=== PATIENT | female | born 1950 | race Caucasian/White ===

== ENCOUNTER 2021-03-06 13:25 | Emergency (ER) | payer MEDICARE ==
[2021-03-06] MEDS ORDERED: Adacel Vial IM ONE ×2 (13:51→13:54)
[2021-03-06 14:07] LABS: Absolute Neutrophil Ct (ANC) 4.86 (1.4-6.9); BASOPHIL % 0.2 % (0.0-0.4); Basophil (Absolute #) 0.01 (0-0.4); Eosinophil % 1.1 % (0.00-5.0); Eosinophil (Absolute #) 0.07 (0-0.5); Hematocrit 36.1 % (35-47); Hemoglobin 11.7 gm/dl (12.0-16.0); Lymphocyte (Absolute #) 0.72 (1.0-4.6); Lymphocytes % 11.6 % (24.0-44.0); Mean Cell Volume 91.4 fl (78-100); Mean Corpuscular Hemoglobin 29.6 pg (26-32); Mean Corpuscular Hgb Concent. 32.4 g/dl (32-36); Monocyte (Absolute #) 0.55 (0.0-1.3); Monocytes % 8.9 % (0.0-12.0); Neutrophil % 78.2 % (36.0-66.0); Platelet Count 126 K/mm3 (150-450); Red Blood Count 3.95 M/mm3 (4.1-5.4); Red Cell Distribution Width 16.5 % (11.5-14.0); White Blood Count 6.2 K/mm3 (4.0-10.5)
[2021-03-06 14:14] LABS: INR 1.08 (0.8-3.0); PROTIME 12.7 SECONDS (9.4-12.5)
--- NOTE | 2021-03-06 14:22 | ERPHSYRPT ---
- History of Present Illness Time Seen by Provider: 03/06/21 13:28 Source: patient, family Exam Limitations: clinical condition Patient Subjective Stated Complaint: Pt fell over a curb yesterday and hit her left side of ther face causing bruising on the entire left side of face, pt responded properly last night but today the pt has word salad Triage Nursing Assessment: Pt brought to the ER by her friend, hypertensive, denies pain, left eye swollen shut and bruised, bruising goes all the way down to the left side of neck, denies LOC, skin n/w/d, talking to son without errors but when discusses accident she gets her words confused, able to touch her nose and the tip of doctors finger, raises legs and arms with no problems Physician History: 70 years old female with history of hypertension, GERD, hyperlipidemia presented in the ER after she tripped while walking in a parking lot and hit her head/left eyes/face against the concrete yesterday. She did not lose consciousness. She was doing fine until her friend/son called her and noticed that she is having some confusion/word salad. Patient can hold a normal conversation but is unable to describe her fall yesterday. Complaining of some dull aching left-sided facial pain without any visual disturbance, numbness tingling or focal weakness. Denies any chest pain palpitations or shortness of breath. No abdominal pain nausea or vomiting. Occurred: yesterday Severity: moderate Head Injury Location: frontal Method of Injury: fell Loss of Consciousness: no loss of consciousness Associated Symptoms: denies symptoms Allergies/Adverse Reactions: No Known Drug Allergies Allergy (Verified 03/06/21 13:53) Home Medications: Losartan Potassium 100 mg PO DAILY 03/06/21 [History] Methotrexate Sodium 2.5 mg [Trexall 2.5 mg] 2.5 mg PO UD 03/06/21 [History] PANTOPRAZOLE 40 mg Tablet [Protonix 40MG Tablet] 40 mg PO QAM 03/06/21 [History] Pravastatin Sodium 20 mg PO DAILY 03/06/21 [History] Sertraline HCl 100 mg PO DAILY 03/06/21 [History] Temazepam [Restoril] 30 mg PO HS 03/06/21 [History] Travel Risk - International Travel Have you traveled outside of the country in past 3 weeks: No - Coronavirus Screening Are you exhibiting any of the following symptoms?: No Close contact with a COVID-19 positive Pt in past 14-21 Days: No - Vaccine Status Have you recieved a Covid-19 vaccination: Yes 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: [employer] - Review of Systems Constitutional: No Symptoms Eyes: Eye Pain, Eye Redness Ears, Nose, & Throat: Mouth Pain, Mouth Swelling Respiratory: No Symptoms Cardiac: No Symptoms Abdominal/Gastrointestinal: No Symptoms Genitourinary Symptoms: No Symptoms Musculoskeletal: No Symptoms Neurological: No Symptoms Psychological: No Symptoms Endocrine: No Symptoms Hematologic/Lymphatic: No Symptoms Immunological/Allergic: No Symptoms - Past Medical History Pertinent Past Medical History: Yes Neurological History: No Pertinent History Cardiac History: High Cholesterol, Hypertension Respiratory History: No Pertinent History Endocrine Medical History: No Pertinent History Musculoskeletal History: Arthritis, Fractures Other Medical History: WAS TAKING MELOXICAM BEFORE SURGERY. - Past Surgical History Past Surgical History: Yes - Social History Smoking Status: Never smoker Exposure to second hand smoke: No Drug Use: none Patient Lives Alone: Yes - Nursing Vital Signs Nursing Vital Signs: Initial Vital Signs Temperature 97.4 F 03/06/21 13:35 Pulse Rate 84 03/06/21 13:35 Blood Pressure 162/88 03/06/21 13:35 O2 Sat by Pulse Oximetry 98 03/06/21 13:35 Pain Scale Pain Intensity 0 - Bam Coma Score Best Eye Response (Bam): (4) open spontaneously Best Verbal Response (Bam): (5) oriented Best Motor Response ([place]): (6) obeys commands [place] Total: 15 - Physical Exam General Appearance: no apparent distress, alert Head Injury: contusions, raccoon eyes, swelling Eye Exam: right eye: normal inspection, PERRL, EOMI, left eye: conjunctival hemorrhage, eyelid injury, periorbital ecchymosis ENT Exam: airway nml, No evidence of ENT injury, No dental injury Neck Exam: supple, trachea midline, full range of motion, normal alignment, normal inspection Cardiovascular/Respiratory Exam: chest non-tender, normal breath sounds, regular rate/rhythm, heart sounds normal Gastrointestinal/Abdominal Exam: soft, non tender, no distention Back Exam: normal inspection, normal range of motion Extremity Exam: non-tender, normal range of motion, normal inspection Mental Status Exam: alert, oriented x 3, 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, normal speech, PERRL Coordination/Gait Exam: normal finger to nose SpO2: 98 - Course EKG Interpreted by Me: RATE (85), Sinus Rhythm, NORMAL AXIS, prolonged QT interval, Non-specific ST Changes Ordered Tests: Active Orders 24 hr Category Date Time Status Salvage Clerk STAT Care 03/06/21 13:51 Completed EKG-ER Only STAT Care 03/06/21 13:50 Completed IV Insertion STAT Care 03/06/21 13:50 Completed CERVICAL SPINE WO CONTRAST [CT] Stat Exams 03/06/21 13:49 Completed CHEST 1 VIEW (PORTABLE) Stat Exams 03/06/21 13:51 Completed FACIAL BONES WO CONTRAST [CT] Stat Exams 03/06/21 13:50 Completed HEAD WITHOUT CONTRAST [CT] Stat Exams 03/06/21 13:50 Completed CBC W DIFF Stat Lab 03/06/21 14:00 Completed CK-Creatinine Phosphokinase Stat Lab 03/06/21 14:00 Completed CMP Stat Lab 03/06/21 14:00 Completed NT PRO BNP Stat Lab 03/06/21 14:00 Completed PROTIME WITH INR Stat Lab 03/06/21 14:00 Completed PTT Stat Lab 03/06/21 14:00 Completed TROPONIN Q3H Lab 03/06/21 14:00 Completed UA W/RFX UR CULTURE Stat Lab 03/06/21 15:52 Completed Medication Summary Discontinued Medications Generic Name Dose Route Start Last Admin Trade Name Freq PRN Reason Stop Dose Admin Diphtheria/Tetanus/Acell Pertussis 0.5 ml 03/06/21 13:51 03/06/21 13:56 Adacel Vial IM 03/06/21 13:52 0.5 ml .ONCE ONE Administration Diphtheria/Tetanus/Acell Pertussis Confirm 03/06/21 13:54 Adacel Vial Administered 03/06/21 13:55 Dose 0.5 ml IM .STK-MED ONE Lidocaine 1 patch 03/06/21 15:05 03/06/21 15:08 Lidoderm Patch 5% TOP 03/06/21 15:06 Not Given ONCE STA Lab/Rad Data: Laboratory Result Diagrams 03/06/21 14:00 03/06/21 14:00 Laboratory Results 03/06/21 03/06/21 03/06/21 Range/Units 15:52 14:00 14:00 WBC (4.0-10.5) K/mm3 RBC (4.1-5.4) M/mm3 Hgb (12.0-16.0) gm/dl Hct (35-47) % MCV (78-100) fl MCH (26-32) pg MCHC (32-36) g/dl RDW (11.5-14.0) % Plt Count (150-450) K/mm3 MPV (7.5-11.0) fl Gran % (36.0-66.0) % Eos # (Auto) (0-0.5) Absolute Lymphs (auto) (1.0-4.6) Absolute Monos (auto) (0.0-1.3) Lymphocytes % (24.0-44.0) % Monocytes % (0.0-12.0) % Eosinophils % (0.00-5.0) % Basophils % (0.0-0.4) % Absolute Granulocytes (1.4-6.9) Basophils # (0-0.4) PT 12.7 H (9.4-12.5) SECONDS INR 1.08 (0.8-3.0) APTT 30.0 (25.1-36.5) SECONDS Sodium (137-145) mmol/L Potassium (3.5-5.1) mmol/L Chloride (98-107) mmol/L Carbon Dioxide (22-30) mmol/L Anion Gap (5-15) MEQ/L BUN (7-17) mg/dL Creatinine (0.52-1.04) mg/dL Estimated GFR ML/MIN Glucose (74-106) mg/dL Calcium (8.4-10.2) mg/dL Total Bilirubin (0.2-1.3) mg/dL AST (14-36) U/L ALT (0-35) U/L Alkaline Phosphatase (38-126) U/L Creatine Kinase (30-135) U/L Troponin I < 0.012 (0.000-0.034) ng/mL NT-Pro-B Natriuret Pep (0-900) pg/mL Serum Total Protein (6.3-8.2) g/dL Albumin (3.5-5.0) g/dL Urine Color STRAW (YELLOW) Urine Appearance CLEAR (CLEAR) Urine pH 7.0 (5-6) Ur Specific Melba 1.006 (1.005-1.025) Urine Protein NEGATIVE (Negative) Urine Ketones NEGATIVE (NEGATIVE) Urine Blood NEGATIVE (0-5) Manuel/ul Urine Nitrite NEGATIVE (NEGATIVE) Urine Bilirubin NEGATIVE (NEGATIVE) Urine Urobilinogen NEGATIVE (0-1) mg/dL Ur Leukocyte Esterase NEGATIVE (NEGATIVE) Urine WBC (Auto) NONE (0-5) /HPF Urine Culture Reflexed NO (NO) Urine Glucose NEGATIVE (NEGATIVE) mg/dL 03/06/21 03/06/21 Range/Units 14:00 14:00 WBC 6.2 (4.0-10.5) K/mm3 RBC 3.95 L (4.1-5.4) M/mm3 Hgb 11.7 L (12.0-16.0) gm/dl Hct 36.1 (35-47) % MCV 91.4 (78-100) fl MCH 29.6 (26-32) pg MCHC 32.4 (32-36) g/dl RDW 16.5 H (11.5-14.0) % Plt Count 126 L (150-450) K/mm3 MPV 10.0 (7.5-11.0) fl Gran % 78.2 H (36.0-66.0) % Eos # (Auto) 0.07 (0-0.5) Absolute Lymphs (auto) 0.72 L (1.0-4.6) Absolute Monos (auto) 0.55 (0.0-1.3) Lymphocytes % 11.6 L (24.0-44.0) % Monocytes % 8.9 (0.0-12.0) % Eosinophils % 1.1 (0.00-5.0) % Basophils % 0.2 (0.0-0.4) % Absolute Granulocytes 4.86 (1.4-6.9) Basophils # 0.01 (0-0.4) PT (9.4-12.5) SECONDS INR (0.8-3.0) APTT (25.1-36.5) SECONDS Sodium 138 (137-145) mmol/L Potassium 4.4 (3.5-5.1) mmol/L Chloride 102 (98-107) mmol/L Carbon Dioxide 25 (22-30) mmol/L Anion Gap 14.7 (5-15) MEQ/L BUN 19 H (7-17) mg/dL Creatinine 1.37 H (0.52-1.04) mg/dL Estimated GFR 40.3 ML/MIN Glucose 143 H (74-106) mg/dL Calcium 9.4 (8.4-10.2) mg/dL Total Bilirubin 1.00 (0.2-1.3) mg/dL AST 30 (14-36) U/L ALT 20 (0-35) U/L Alkaline Phosphatase 101 (38-126) U/L Creatine Kinase 62 (30-135) U/L Troponin I (0.000-0.034) ng/mL NT-Pro-B Natriuret Pep 176 (0-900) pg/mL Serum Total Protein 8.1 (6.3-8.2) g/dL Albumin 4.5 (3.5-5.0) g/dL Urine Color (YELLOW) Urine Appearance (CLEAR) Urine pH (5-6) Ur Specific Melba (1.005-1.025) Urine Protein (Negative) Urine Ketones (NEGATIVE) Urine Blood (0-5) Manuel/ul Urine Nitrite (NEGATIVE) Urine Bilirubin (NEGATIVE) Urine Urobilinogen (0-1) mg/dL Ur Leukocyte Esterase (NEGATIVE) Urine WBC (Auto) (0-5) /HPF Urine Culture Reflexed (NO) Urine Glucose (NEGATIVE) mg/dL - Progress Progress: improved, re-examined Progress Note: 03/06/21 16:10 70 years old is evaluated for facial/head trauma yesterday with some word finding issues this morning. She has a nonfocal neuro exam otherwise. Intact range of motion of eyes including the left. I have obtained CT head, facial bones and cervical spine which are negative for any acute trauma related finding except for left orbital floor nondisplaced fracture without any entrapment. Baseline work-up is grossly unremarkable. On reevaluation patient is back to normal and is able to completely recall what happened yesterday. She is not confused or altered at all. She is ambulating in the ER without any limitation. Nonfocal neuro exam. I have discussed with Dr. Paredes trauma surgery [facility], reviewed history and CT findings, do not think patient needs imaging at trauma surgery but outpatient ENT. I have called Dr. Barrios's office which is closed now, recommended calling for outpatient appointment early Tuesday morning. I have offered her observation admission as she stays alone at home but she does not want to stay in the hospital absolutely. I have discussed with patient and family and her son would be staying with her for next 2 days and discussed with her about signs symptoms of worsening needing return to ER which do seem understanding. I believe patient has some element of concussion with confusion. At this point patient is being discharged in stable condition. Discussed with Dr.: Other (Dr. Paredes trauma surgeon) Counseled pt/family regarding: lab results, diagnosis, need for follow-up, rad results - Departure Departure Disposition: Home Clinical Impression: Concussion Qualifiers: Encounter type: initial encounter Loss of consciousness presence/duration: without LOC Qualified Code(s): S06.0X0A - Concussion without loss of consciousness, initial encounter Orbital floor fracture Qualifiers: Encounter type: initial encounter Fracture type: closed Laterality: left Qualified Code(s): S02.32XA - Fracture of orbital floor, left side, initial encounter for closed fracture Facial contusion Qualifiers: Encounter type: initial encounter Qualified Code(s): S00.83XA - Contusion of other part of head, initial encounter Condition: Stable Critical Care Time: No Referrals: NEGAR GONZALEZ NP [Primary Care Provider] - (Tuesday morning at 11 AM) KAYLEE BLACKMON [NON-STAFF PHY W/O PRIVILEGES] - (Call Tuesday for reevaluation) Instructions: Concussion, Adult (DC), Closed Head Injury (DC), Facial Fracture (DC) Additional Instructions: Take Tylenol as needed. Apply intermittent ice. A with a responsible person for next 48 hours with frequent neuro checks. Follow head injury/concussion instructions and return to ER for confusion, altered mental status, numbness tingling focal weakness, difficulty speech etc. Use cane/walker for ambulation to avoid another fall. Do not take ibuprofen Aleve or any other NSAIDs.
--- NOTE | 2021-03-06 14:26 | XRAY ---
Indication: Status post fall. Comparison: None Portable apical lordotic chest inflated and clear with a few incidental tiny calcified granulomas. Heart is not enlarged. Bony thorax intact with osteopenia, degenerative changes, and old left humerus fracture. Impression: Nonacute chest with chronic features.
[2021-03-06 14:27] LABS: ALBUMIN 4.5 g/dL (3.5-5.0); ANION GAP 14.7 MEQ/L (5-15); Calcium 9.4 mg/dL (8.4-10.2); Creatinine 1 1.37 mg/dL (0.52-1.04); EST GLOMERULAR FILTRATION RATE 40.3 ML/MIN; Potassium 4.4 mmol/L (3.5-5.1); Total Protein 8.1 g/dL (6.3-8.2)
--- NOTE | 2021-03-06 14:28 | XRAY ---
Indication: Left-sided bruising and swelling following fall. Multiple contiguous axial images obtained through the head without contrast. Comparison: None Age-appropriate global atrophy. No acute intracranial hemorrhage, abnormal extra-axial fluid collection, or mass effect. Fourth ventricle is midline without hydrocephalus. Verdugo-white matter differentiation preserved. Bony calvarium intact. Left maxillary sinus demonstrates moderate fluid leveling. Remaining paranasal sinuses and mastoid air cells are clear. Impression: 1. Left maxillary sinus disease. 2. Remaining CT head without contrast exam is negative.
--- NOTE | 2021-03-06 14:36 | XRAY ---
Indication: Left-sided bruising and swelling following fall. Multiple contiguous axial images obtained through the facial bones. Sagittal and coronal reformatted images obtained. Comparison: None Patient is edentulous. Mild left periorbital soft tissue swelling. Floor of the left orbit demonstrates nondisplaced/nondepressed fracture. Left maxillary sinus fluid leveling presumed blood. No entrapment of the extraocular muscles. No other acute fracture, suspicious bony lesions, or radiopaque foreign body. Remaining paranasal sinuses and nasal passages are clear. Visualized noncontrasted soft tissues are unremarkable. CT head and CT cervical spine reported separately. Impression: Nondisplaced nondepressed fracture floor of left orbit with left maxillary sinus fluid leveling/blood.
[2021-03-06] MEDS ORDERED: Lidoderm Patch 5% TOP STA (15:05)
--- NOTE | 2021-03-06 16:00 | XRAY ---
Indication: Left-sided bruising and swelling following fall. Multiple contiguous axial images obtained through the cervical spine. Sagittal and coronal reformatted images obtained. Comparison: None Axial images images negative for acute fracture, suspicious bony lesions, or spinal canal stenosis. Mild multilevel degenerative endplate spurring, mild atlantoaxial degenerative arthropathy, and mild multilevel bilateral degenerative facet hypertrophy. Sagittal and coronal reformatted images demonstrates normal alignment with minimal multilevel disc space narrowing. No acute compression fracture, subluxation, or jumped facet. Normal appearing craniocervical junction. Visualized noncontrasted soft tissues demonstrates mild bilateral carotid calcifications and mild heterogeneous thyroid gland with 2 cm left lobe hypodense nodule/cyst. Lung apices are clear. Impression: 1. Negative acute fracture/subluxation. 2. Mild multilevel degenerative changes. 3. Heterogeneous thyroid gland with 2 cm left lobe hypodense nodule/cyst.
[2021-03-06 16:13] LABS: Appearance CLEAR (CLEAR); Bilirubin NEGATIVE (NEGATIVE); Blood NEGATIVE Ery/ul (0-5); Glucose NEGATIVE (NEGATIVE); Ketones NEGATIVE (NEGATIVE); Leukocyte Esterase NEGATIVE (NEGATIVE); Nitrite NEGATIVE (NEGATIVE); Protein,Urine Dip NEGATIVE (Negative); Specific Gravity 1.006 (1.005-1.025); Urobilinogen NEGATIVE mg/dL (0-1)
[2021-03-06 16:31] VITALS: BP 159/73; PULSE 80
[2021-03-06 17:46] VITALS: O2SAT 98
== END 2021-03-06 16:31 | disposition home or self-care (01) ==
LOC: ED 13:25
DX: S06.0X0A Concussion without loss of consciousness, initial encounter (principal); S02.32XA Fracture of orbital floor, left side, initial encounter for closed fracture; S00.83XA Contusion of other part of head, initial encounter; I10 Essential (primary) hypertension; W10.1XXA Fall (on)(from) sidewalk curb, initial encounter; Y93.01 Activity, walking, marching and hiking; Y92.480 Sidewalk as the place of occurrence of the external cause; Z79.899 Other long term (current) drug therapy
CPT/HCPCS: 36000; 36415; 70450; 70486; 71045; 72125; 80053; 81001; 82550; 83880; 84484; 85025; 85610; 85730; 90471; 90715; 93005; 93041; 99284